=== PATIENT | male | born 1970 | race Caucasian/White ===

== ENCOUNTER 2016-11-17 22:37 | Emergency (ER) | payer BC ==
[~2016-11-17] VITALS: Ht 188 cm; Wt 134.9 kg
[~2016-11-17 22:37] MED LIST: ACET-1256 PO; ALBU1AER9 INH; SNG10 PO; WARF-286 PO
[2016-11-17 22:40] VITALS: TEMP 36.8; Ht 188 cm; Wt 134.9 kg
[2016-11-17] MEDS ORDERED: ALBU18002 INH (22:56)
[2016-11-17] MEDS ORDERED: SNG10 PO (22:56)
[2016-11-17] MEDS ORDERED: CEFTRIAXONE SOD INJ 1 GM ADDVIAL IV STA (23:38)
[2016-11-17] MEDS ORDERED: CEPHALEXIN 500MG HOME PACK 1 EA BTL PO ONE (23:45)
[2016-11-18] MEDS ORDERED: CEPH500C PO (01:03)
[2016-11-18 01:26] VITALS: BP 131/73; PULSE 75; O2SAT 98
--- NOTE | 2016-11-18 03:43 | EMERGENCY ROOM VISIT NOTE ---
History Report prepared by Layo: Anabell Geronimo Under the Supervision of: Dr. Braulio Rm M.D. First contact with patient: 23:23 Chief Complaint: RASH Stated Complaint: CELLULITIS RASH, FEVER 99.4 History of Present Illness The patient is a 46 year old male who presents to the Emergency Room with complaints of a worsened rash to his right arm that began one week ago. The patient states that he developed what he thought was poison gui, noting that he treated his symptoms with Calamine. He states that he additionally noticed the rash to his right abdomen. The patient states that his rash worsened and developed a low-grade fever at home today. He states that he is on Warfarin due to previous blood clots. The patient states that he last had his INR checked 1 week ago noting that it was within normal range. He states that he has a history of Cellulitis to his right leg. The patient denies any history of MRSA or STAPH infections. Pt denies LOC, headache, chills, diaphoresis, visual changes, neck pain, chest pain, breathing difficulties, nausea, vomiting , abdominal pain, back pain, melena, hematochezia, urinary symptoms, numbness, weakness, lymphadenopathy, or other complaints. Source of History: patient Onset: 1 week ago Position: arm (right) Quality: other (rash) Timing: worsening Associated Symptoms: + fevers (low-grade) Review of Systems See HPI for pertinent positives and negatives. A total of ten systems were reviewed and were otherwise negative. Past Medical & Surgical Medical Problems: (1) Anticoagulants,Lt,Current Use (2) Asthma (3) Oth Pulmon Embolism/Infarct Family History Hypertension Social History Smoking Status: Never Smoker Smokeless Tobacco Use: No Alcohol Use: occasionally Marital Status: Housing Status: lives with family Occupation Status: employed Current/Historical Medications Scheduled Cephalexin Monohydrate (Keflex), 500 MG PO QID Montelukast Sod (Montelukast Sodium), 10 MG PO DAILY Warfarin Sodium (Warfarin Sodium), 6 MG PO 3XWK Warfarin Sodium (Warfarin Sodium), 9 MG PO 4XWK Scheduled PRN Acetaminophen (Tylenol), 1,000 MG PO for Pain or Fever Albuterol Sulfate (Proair Respiclick), 2 PUFFS INH DIRECTED PRN for ASTHMA Allergies Coded Allergies: Aspirin (Verified Allergy, Unknown, congestion, 11/17/16) Penicillins (Verified Allergy, Unknown, RXN AN INFANT, 11/17/16) Physical Exam Vital Signs Date Time Temp Pulse Resp B/P (MAP) Pulse Ox O2 Delivery O2 Flow Rate FiO2 11/18/16 01:26 75 18 131/73 98 11/18/16 00:40 86 18 149/83 96 Room Air 11/17/16 22:40 36.8 99 18 145/94 97 Room Air Physical Exam GENERAL: Awake, alert, well-appearing, in no distress HENT: Normocephalic, atraumatic. Oropharynx unremarkable. EYES: Normal conjunctiva. Sclera non-icteric. NECK: Supple. No nuchal rigidity. FROM. No JVD. RESPIRATORY: Clear to auscultation. CARDIAC: Regular rate, normal rhythm. Extremities warm and well perfused. Pulses equal. ABDOMEN: Soft, non-distended. No tenderness to palpation. No rebound or guarding. No masses. RECTAL: Deferred. MUSCULOSKELETAL: Chest examination reveals no tenderness. The back is symmetrical on inspection without obvious abnormality. There is no CVA tenderness to palpation. No joint edema. LOWER EXTREMITIES: Calves are equal size bilaterally and non-tender. No edema. No discoloration. NEURO: Normal sensorium. No sensory or motor deficits noted. SKIN: Warmth, induration, redness, and tenderness to right forearm extending up to right medial upper arm. Papillary dermitits with some serous oozing. Medical Decision & Procedures Medications Administered Medications (Trade) Dose Ordered Sig/Alphonse Route Start Time Stop Time Status Last Admin Dose Admin Ceftriaxone Sodium (Rocephin Inj) 1 gm NOW STAT IV 11/17/16 23:38 11/17/16 23:40 DC 11/17/16 23:58 1 GM Cephalexin Monohydrate (Keflex 500MG Home Pack) 1 homepack NOW ONCE PO 11/17/16 23:45 11/17/16 23:46 DC 11/18/16 01:21 1 HOMEPACK ED Course 2333: The patient was evaluated in room A3. A complete history and physical exam was performed. 2338: Ordered Rocephin Inj 1 gm IV. 2345: Ordered Cephalexin Monohydrate 1 homepack PO. 0109: I reevaluated the patient and he is doing well. I discussed the exam findings with him and I discussed the treatment plan. He verbalized complete understanding and agreement. He is ready to go home. Medical Decision Medication Reconciliation: I attest that I have personally reviewed the patient' s current medication list Blood pressure screening: Patient was found to have an elevated blood pressure and was referred to their primary doctor for recheck and further treatment. Prior records/ancillary studies reviewed. Triage Nursing notes reviewed and agree them. The patient's history was concerning for a rash. Differential diagnosis: Etiologies such as Dean-Honorio syndrome, toxic epidermal necrolysis, erythema multiforme, cellulitis, scabies, HSV, varicella, zoster, eczema, staph scalded skin syndrome, viral exanthem, fungal infection, urticaria, allergic reaction, contact dermatitis, as well as others were entertained. Physical examination: As above. Consistent with cellulitis. ER treatment provided: IV Rocephin Wound dressing On reassessment the patient felt better. Diagnostic interpretation by me: None ordered The patient has a poison gui dermatitis and secondary cellulitis of the right arm. He is doing relatively well at this point time. He was given Rocephin. He'll be treated with Keflex that she has had this in the past and unwell. He will follow-up closely as an outpatient. I did discuss the need for repeat testing of his INR as the antibiotic will likely affect his Coumadin anticoagulation.I gave my usual and customary discussion regarding this issue. By the evaluation outlined above emergent etiologies such as Dean-Honorio syndrome, toxic epidermal necrolysis, erythema multiforme, scabies, HSV, varicella, zoster, staph scalded skin syndrome, urticaria, allergic reaction, as well as others were deemed relatively unlikely. The patient was informed about the findings as listed above. All questions were answered and he was pleased with the treatment. Return instructions were outlined and the patient was discharged in stable condition. Outpatient prescription management: Keflex Referral: The patient was referred back to his primary care physician for follow-up in 2- 3 days for a recheck of the current condition. The chart was completed utilizing [employer] voice recognition software. Grammatical errors, random word insertions, pronoun errors, and incomplete sentences are an occasional consequence of this system due to software limitations, ambient noise, and hardware issues. Any formal questions or concerns about the content, text, or information contained within the body of this dictation should be directly addressed to the physician for clarification. Impression Primary Impression: Cellulitis Scribe Attestation The scribe's documentation has been prepared under my direction and personally reviewed by me in its entirety. I confirm that the note above accurately reflects all work, treatment, procedures, and medical decision making performed by me. Departure Information Dispostion Discharge/Transfer to [facility] Prescriptions Cephalexin Monohydrate (Keflex) 500 Mg Cap 500 MG PO QID, #36 CAP Prov: Braulio Rm MD 11/18/16 Referrals [place] D.O. (PCP) Forms HOME CARE DOCUMENTATION FORM, IMPORTANT VISIT INFORMATION, WORK / SCHOOL INSTRUCTIONS Patient Instructions My [facility] Additional Instructions CELLULITIS INSTRUCTIONS: Cephalexin(Keflex) 500mg: Take one pill four times daily for 10 days for your skin infection. All antibiotics can cause diarrhea. If this occurs and you feel worse or it does not resolve in 1-2 days follow up with your doctor or return to the Emergency Department as this could be signs of serious underlying problems. Any medication can cause an allergic reaction, stop the pills immediately and return to the ER for rash, hives, breathing difficulties, or swelling. Bacitracin and bandage to the open area until healed. Diphenhydramine: Use 25 to 50 mg every six hours for swelling, itching, or hives. This medication may cause sedation. Do not drive or perform dangerous activity if you are using this medication. Acetaminophen(Tylenol) may be used for fever or pain. Use 1000mg every six hours as needed. Avoid using more than 4000mg in a 24 hour period. Warm compresses to the affected area 4 times daily for 15-20 minutes. Rest and drink plenty of fluids. Continue current medications. Return to the ER for severe pain, persistent fevers, spreading redness, or any worsening of your condition. Follow up with your primary physician within 1-2 days for a recheck of the current condition.
== END 2016-11-18 01:26 | disposition home or self-care (01) ==
LOC: C.EDB 22:38 → C.EDA 11-18 01:26
DX: L03.113 Cellulitis of right upper limb (principal); L25.5 Unspecified contact dermatitis due to plants, except food; Z79.01 Long term (current) use of anticoagulants; Z86.711 Personal history of pulmonary embolism; J45.909 Unspecified asthma, uncomplicated; Z82.49 Family history of ischemic heart disease and other diseases of the circulatory system; Z79.899 Other long term (current) drug therapy